=== PATIENT | male | born 1955 | race Caucasian/White ===

== ENCOUNTER 2016-11-26 06:21 | Day surgery (SDC) | payer BC ==
[2016-11-26] MEDS ORDERED: Lactated Ringers 1,000 ML IV SCH (07:00)
[2016-11-26] MEDS ORDERED: fentaNYL 100 MCG/2 ML SDV ONE (07:10)
[2016-11-26] MEDS ORDERED: Midazolam 1 MG/ML 2 ML SDV ONE (07:10)
[2016-11-26] MEDS ORDERED: Propofol 200 MG/20 ML SDV ONE ×2 (07:10→07:46)
[2016-11-26 08:46] VITALS: BP 123/78
--- NOTE | 2016-11-26 14:56 | OR ---
DATE OF PROCEDURE: 11/26/2016 PREOPERATIVE DIAGNOSIS: History of adenomatous colon polyps. POSTOPERATIVE DIAGNOSES: Unremarkable colonoscopy save for some hemorrhoids, history of adenomatous colon polyps. PROCEDURE: Colonoscopy to the cecum. SURGEON: Vamshi Louis MD ANESTHESIA: IV anesthesia with monitored anesthesia care. INDICATION: This 61-year-old white male is referred for a colonoscopy because of history of adenomatous colon polyps. His prior colonoscopies have been done in the [facility]. His last colonoscopic exam done about three years ago was unremarkable save for some hemorrhoids. I counseled him for a colonoscopy with possible biopsy and/or polypectomy including risks and alternatives, and he gave his informed consent to proceed. DESCRIPTION OF PROCEDURE: The patient was placed in the left lateral decubitus position. IV anesthesia was administered by the Anesthesia Service. Time-out was held. A rectal exam was performed, which was unremarkable. The flexible video Olympus colonoscope was introduced through his anus, up his rectum, and out his colon all way to the cecum. Once the cecum was reached, the scope was slowly withdrawn examining the mucosa throughout. No mucosal abnormalities were noted. The scope was retroflexed in the rectum with the distal rectum appearing unremarkable save for some minor hemorrhoidal tissue. The scope was straightened and removed. He tolerated the procedure well. Vamshi Louis MD /[id number]
== END 2016-11-26 09:02 | disposition home or self-care (01) ==
LOC: JP.SDS 06:21
PROVIDERS: ATTEND Surgery
PROC: 0DJD8ZZ Inspection of Lower Intestinal Tract, Via Natural or Artificial Opening Endoscopic (ICD-10-PCS; principal; 2016-11-26)
DX: K64.9 Unspecified hemorrhoids (principal); Z86.010 Personal history of colon polyps
CPT/HCPCS: 45378; J2250; J2704; J3010; J7120

== ENCOUNTER 2024-04-18 13:06 | Emergency (ER) | payer MEDICARE, BC ==
[2024-04-18 13:28] LABS: BASOPHILS ABSOLUTE AUTO 0.05 K/uL (0.00-0.10); BASOPHILS PERCENT AUTO 0.4 % (0.1-1.3); EOSINOPHILS ABSOLUTE AUTO 0.15 K/uL (0.00-0.40); EOSINOPHILS PERCENT AUTO 1.3 % (0.0-5.4); HEMATOCRIT 41.9 % (38.4-49.7); HEMOGLOBIN 14.9 g/dL (12.9-16.9); IMMATURE GRAN ABSOLUTE AUTO 0.09 K/uL (0.00-0.23); IMMATURE GRAN PERCENT AUTO 0.8 % (0.0-0.7); LYMPHOCYTES ABSOLUTE AUTO 0.71 K/uL (0.8-3.3); MEAN CORPUSCULAR HEMOGLOBIN 32.6 pg (31.6-35.5); MEAN CORPUSCULAR HGB CONC 35.6 g/dL (31.6-35.5); MEAN CORPUSCULAR VOLUME 91.7 fL (81.4-99.0); NEUTROPHILS ABSOLUTE AUTO 10.29 K/uL (1.0-7.6); NEUTROPHILS PERCENT AUTO 86.5 % (40.0-78.1); PLATELET COUNT,PLT 155 K/uL (130-375); RED BLOOD CELL COUNT 4.57 M/uL (4.14-5.76); WHITE BLOOD CELL COUNT,WBC 11.9 K/uL (3.2-11.0)
[2024-04-18] MEDS: Ketorolac 15 MG/ML SDV IVPUSH ONE (13:34)
[2024-04-18 13:38] LABS: A/G RATIO 1.2 (1.2-2.2); ALANINE AMINOTRANSFERASE,ALT 57 U/L (12-78); ALBUMIN 3.9 g/dL (3.4-5.0); ALKALINE PHOSPHATASE 71 U/L (46-116); ANION GAP 8.1 mmol/L (5.0-14.0); ASPARTATE AMNIOTRANSFERASE,AST 56 U/L (15-37); BILIRUBIN TOTAL 0.6 mg/dL (0.2-1.0); BLOOD UREA NITROGEN,BUN 14 mg/dL (7-18); CALCIUM 9.3 mg/dL (8.5-10.1); CARBON DIOXIDE,CO2 29 mmol/L (21-32); CHLORIDE,CL 105 mmol/L (100-108); CREATININE 0.9 mg/dL (0.8-1.3); ESTIMATED GFR 94 mL/min (>60); GLUCOSE RANDOM 148 mg/dL (74-106); INR 1.1; MAGNESIUM 1.9 mg/dL (1.8-2.4); POTASSIUM,K 3.8 mmol/L (3.6-5.2); PROTEIN TOTAL,TP 7.1 g/dL (6.4-8.2); PROTHROMBIN TIME 11.5 sec (9.2-10.6); PTT,PARTIAL THROMBOPLSTIN TIME 28.1 sec (21.8-27.3); SODIUM,NA 142 mmol/L (140-148)
[2024-04-18] MEDS: Ketorolac 15 MG/ML SDV IM ONE (14:59)
[2024-04-18 16:13] VITALS: BP 166/91; PULSE 62
[2024-04-18] MEDS: Morphine 10 MG/ML Syringe IM ONE (16:59)
[2024-04-18] MEDS ORDERED: Naloxone 0.4 MG/ML SDV IVPUSH PRN (18:36)
[2024-04-18] MEDS: HYDROmorphone 0.5 MG/0.5 ML Syringe IVPUSH ONE (18:41)
== END 2024-04-18 19:24 ==
LOC: JP.ED 13:06
DX: S13.161A Dislocation of C5/C6 cervical vertebrae, initial encounter (principal); S32.019A Unspecified fracture of first lumbar vertebra, initial encounter for closed fracture; E78.00 Pure hypercholesterolemia, unspecified; Z79.899 Other long term (current) drug therapy; W17.89XA Other fall from one level to another, initial encounter
CPT/HCPCS: 36415; 71045; 72125; 72131; 76377; 80053; 83735; 85025; 85610; 85730; 96372; 96374; 96375; 96376; 99285; J1170; J1885; J2270; J3360

== ENCOUNTER 2025-05-28 06:31 | Day surgery (SDC) | payer MEDICARE, BC ==
[2025-05-28] MEDS: Lactated Ringers 1,000 ML IV SCH (06:48)
[2025-05-28 06:55] LABS: BASOPHILS ABSOLUTE AUTO 0.04 K/uL (0.00-0.10); BASOPHILS PERCENT AUTO 0.7 % (0.1-1.3); EOSINOPHILS ABSOLUTE AUTO 0.37 K/uL (0.00-0.40); EOSINOPHILS PERCENT AUTO 6.0 % (0.0-5.4); IMMATURE GRAN ABSOLUTE AUTO 0.03 K/uL (0.00-0.23); IMMATURE GRAN PERCENT AUTO 0.5 % (0.0-0.7); LYMPHOCYTES ABSOLUTE AUTO 2.22 K/uL (0.8-3.3); LYMPHOCYTES PERCENT AUTO 36.3 % (11.4-47.7); MONOCYTES ABSOLUTE AUTO 0.54 K/uL (0.20-0.90); MONOCYTES PERCENT AUTO 8.8 % (3.3-12.6); NEUTROPHILS ABSOLUTE AUTO 2.92 K/uL (1.0-7.6); NEUTROPHILS PERCENT AUTO 47.7 % (40.0-78.1); PLATELET COUNT,PLT 169 K/uL (130-375); RED BLOOD CELL COUNT 4.49 M/uL (4.14-5.76); WHITE BLOOD CELL COUNT,WBC 6.1 K/uL (3.2-11.0)
[2025-05-28 07:15] LABS: A/G RATIO 1.1 (1.2-2.2); ALANINE AMINOTRANSFERASE,ALT 36 U/L (12-78); ASPARTATE AMNIOTRANSFERASE,AST 26 U/L (15-37); BILIRUBIN TOTAL 0.5 mg/dL (0.2-1.0); BLOOD UREA NITROGEN,BUN 12 mg/dL (7-18); CARBON DIOXIDE,CO2 32 mmol/L (21-32); CHLORIDE,CL 105 mmol/L (100-108); CREATININE 0.9 mg/dL (0.8-1.3); EST CRCL DRUG DOSING (CG) 86.22 mL/min; ESTIMATED GFR 93 mL/min (>60); GLUCOSE RANDOM 97 mg/dL (74-106); POTASSIUM,K 4.1 mmol/L (3.6-5.2); PROTEIN TOTAL,TP 7.1 g/dL (6.4-8.2); SODIUM,NA 142 mmol/L (140-148)
[2025-05-28] MEDS ORDERED: Ondansetron 4 MG/2 ML SDV ONE (07:18)
[2025-05-28] MEDS ORDERED: Succinylcholine 200 MG/10 ML MDV ONE (07:18)
[2025-05-28] MEDS ORDERED: Propofol 200 MG/20 ML SDV ONE (07:18)
[2025-05-28] MEDS ORDERED: fentaNYL 250 MCG/5 ML SDV ONE (07:18)
[2025-05-28] MEDS ORDERED: Dexamethasone 4 MG/ML SDV ONE (07:18)
[2025-05-28] MEDS ORDERED: Glycopyrrolate 0.2 MG/ML 5 ML MDV ONE (07:18)
[2025-05-28] MEDS: metroNIDAZOLE/Normal Saline 500 MG in Premix Bag 1 BAG IV ONE (07:21)
[2025-05-28] MEDS ORDERED: Ketorolac 30 MG/ML SDV ONE (08:12)
[2025-05-28] MEDS ORDERED: hydrALAZINE 20 MG/ML SDV ONE (08:30)
[2025-05-28] MEDS ORDERED: fentaNYL 100 MCG/2 ML SDV ONE (09:15)
[2025-05-28] MEDS: Acetaminophen/HYDROcodone 325-5 MG Tab PO ONE (11:00)
[2025-05-28 11:08] VITALS: BP 124/82; PULSE 66
== END 2025-05-28 11:30 | disposition home or self-care (01) ==
LOC: JP.SDS 06:31
PROVIDERS: ATTEND Surgery
DX: K40.30 Unilateral inguinal hernia, with obstruction, without gangrene, not specified as recurrent (principal); E66.3 Overweight; I10 Essential (primary) hypertension; Z68.26 Body mass index [BMI] 26.0-26.9, adult; Z87.891 Personal history of nicotine dependence
CPT/HCPCS: 36415; 49650; 80053; 85025; A9270; C1781; J0169; J0330; J0360; J0690; J1100; J2405; J2704; J2710; J2795; J3010; J7120; 00860-QZ; J0665; J1596; J1836; J1885; J3490